=== PATIENT | male | born 1970 | race Caucasian/White ===

== ENCOUNTER → 2016-10-20 | Outpatient (CLI) | payer MEDICAID ==
[~2016-10-20] MED LIST: CYCL1TAB29 PO; IBUP800T23 PO
--- NOTE | 2016-10-20 12:41 | EKG ---
Date Performed: 10/20/2016 Time Performed: 11:30:48 PTAGE: 45 years EKG: Sinus rhythm VOLTAGE CRITERIA FOR LVH ABNORMAL ECG NO PREVIOUS TRACING DOCTOR: Wm Cosme Interpretating Date/Time 10/20/2016 12:39:37
== END ==
LOC: HCAV 11:15
DX: F31.61 Bipolar disorder, current episode mixed, mild (principal); F63.9 Impulse disorder, unspecified; F43.12 Post-traumatic stress disorder, chronic; F41.8 Other specified anxiety disorders; R94.31 Abnormal electrocardiogram [ECG] [EKG]
CPT/HCPCS: 93005

== ENCOUNTER 2017-07-03 19:13 | Emergency (ER) | payer MEDICAID ==
[~2017-07-03] VITALS: Ht 185.4 cm; Wt 79.5 kg
[~2017-07-03 19:13] MED LIST changes: +CYCL10TA PO; -CYCL1TAB29 PO; +IBUP1TAB7 PO; -IBUP800T23 PO
[2017-07-03 19:15] VITALS: BP 148/90; PULSE 84; RESP 16; TEMP 98; O2SAT 100
[2017-07-03] MEDS ORDERED: IBUP1TAB7 PO (20:47)
--- NOTE | 2017-07-03 20:48 | PD ---
HPI Chief Complaint: Injury Time Seen by Provider: 20:04 Travel History International Travel<30 days: No Contact w/Intl Traveler<30days: No Traveled to known affect area: No History of Present Illness HPI 46-year-old male here with right knee pain times one day. He reports yesterday while bent down in a crouched position he felt his right kneecap pop out of place when he stood up the kneecaps returned to its normal position. He reports this has occurred numerous times throughout his life. He noticed the knee was quite swollen this morning which prompted his visit today. He has difficulty completely extending the leg due to pain in the anterior portion of the knee. He denies paresthesia or weakness of the extremity. No change in color of the extremity. Normal sensation. Weightbearing is difficult due to pain. Symptom severity is moderate. PFSH Past Medical History COPD: Yes Diminished Hearing: No Musculoskeletal: Yes (SCIATICA, SPINAL STENOSIS) Respiratory: Yes (COPD) Past Surgical History Genitourinary Surgery: Yes (RENAL SX) Tonsillectomy: Yes (ADENOIDS) Tympanostomy Tube: Yes Social History Alcohol Use: No Tobacco Use: Yes (1 PPD) Substance Use: No Allergies-Medications (Allergen,Severity, Reaction): Coded Allergies: No Known Allergies (Unverified Adverse Reaction, Unknown, 07/03/17) Reported Meds & Prescriptions Reported Meds & Active Scripts Active Flexeril (Cyclobenzaprine HCl) 10 Mg Tab 10 Mg PO TID PRN Ibuprofen 800 Mg Tab 800 Mg PO Q6HR PRN Review of Systems Except as stated in HPI: all other systems reviewed are Neg Physical Exam Narrative GENERAL: Alert male well-appearing. SKIN: Warm and dry. HEAD: Normocephalic. EYES: No scleral icterus. No injection or drainage. NECK: Supple, trachea midline. CARDIOVASCULAR: Regular rate and rhythm without murmurs, gallops, or rubs. RESPIRATORY: Breath sounds equal bilaterally. No accessory muscle use. MUSCULOSKELETAL: No cyanosis, or edema. Right lower extremity: Mild amount of swelling to the anterior aspect of the knee. The patella appears in proper location. Patient is able to fully flex the knee but has difficulty fully extending the knee due to pain. 2+ popliteal, posterior tibial, dorsal pedis pulse. Normal sensation. Brisk cap refill. Data Data Last Documented VS Vital Signs Date Time Temp Pulse Resp B/P (MAP) Pulse Ox O2 Delivery O2 Flow Rate FiO2 07/03/17 19:15 98.0 84 16 148/90 (109) 100 Room Air Orders Orders Knee, Complete (4vws) (07/03/17 ) [place] Medical Decision Making Medical Screen Exam Complete: Yes Emergency Medical Condition: Yes Differential Diagnosis Knee sprain, patella dislocation, fracture Narrative Course 46-year-old male here for evaluation of right knee pain after he believes his patella dislocated after he bent into a squatted position last night. He reports the patella self reduced upon standing. He noticed swelling and pain today prompting his visit his extremity is neurovascularly intact. The joint is stable. X-ray is negative for fracture dislocation. Patient will be treated for a ligamental injury. Magdaleno wrap applied. Instructed to ice and elevate the extremity. NSAIDs for pain. Follow-up with orthopedic. Diagnosis Primary Impression: Knee sprain Qualified Codes: S83.91XA - Sprain of unspecified site of right knee, initial encounter Referrals: Orthopedist Primary Care Physician Additional Instructions: With Magdaleno wrap to support the knee. Rest, ice, elevate the extremity. Take ibuprofen as directed. Make a follow-up appointment with your doctor. Scripts Ibuprofen (Ibuprofen) 800 Mg Tab 800 MG PO Q6HR Y for PAIN, #40 TAB 0 Refills Prov: Sharmin Ortiz 07/03/17 Disposition: 01 DISCHARGE HOME Condition: Stable Sharmin Ortiz Jul 03, 2017 20:48
[2017-07-03] MEDS ORDERED: KETOROLAC TROMETHAMINE 60 MG/2 ML (IM) VIAL IM ONE (21:00)
[2017-07-03] MEDS ORDERED: IBUPROFEN 800 MG TAB PO ONE (21:00)
--- NOTE | 2017-07-03 21:28 | RADRPT ---
EXAM DATE/TIME: 07/03/2017 20:19 [facility] COMPARISON: No previous studies available for comparison. INDICATIONS : Right knee pain after popping yesterday. MEDICAL HISTORY : None. SURGICAL HISTORY : None. ENCOUNTER: Initial ACUITY: 2 days PAIN SCORE: 10/10 LOCATION: Right knee. FINDINGS: Four view examination of the right knee demonstrates no evidence of fracture or dislocation. Bony mi neralization is normal. The articular surfaces are intact. The suprapatellar soft tissues are not d istended. CONCLUSION: Osseous structures are grossly intact. Bret Abebe MD on July 03, 2017 at 21:26 Board Certified Radiologist. This report was verified electronically.
== END 2017-07-03 21:13 | disposition home or self-care (01) ==
LOC: NEPK 19:13
DX: S83.91XA Sprain of unspecified site of right knee, initial encounter (principal); X50.9XXA Other and unspecified overexertion or strenuous movements or postures, initial encounter
CPT/HCPCS: 73564; 99283